=== PATIENT | female | born 1935 | race Caucasian/White ===

== ENCOUNTER 2022-04-29 17:32 | Emergency (ER) | payer SELFPAY ==
[2022-04-29 17:58] VITALS: BP 148/75; PULSE 66; RESP 18; TEMP 98; BMI 27.0
[2022-04-29] MEDS ORDERED: DIPHTH,PERTUSS(ACELL),TET 0.5 ML DISP.SYRIN IM ONE ×2 (19:32→19:34)
[2022-04-29] MEDS ORDERED: CEPHALEXIN MONOHYDRATE 500 MG CAPSULE (UD) PO ONE (19:50)
[2022-04-29] MEDS ORDERED: CEPHALEXIN MONOHYDRATE 500 MG CAPSULE (UD) ONE (19:57)
== END 2022-04-29 20:12 | disposition home or self-care (01) ==
LOC: JER 17:32 → JERFT 17:32
PROC: 3E0234Z Introduction of Serum, Toxoid and Vaccine into Muscle, Percutaneous Approach (ICD-10-PCS; principal; 2022-04-29)
DX: S62.620B Displaced fracture of middle phalanx of right index finger, initial encounter for open fracture (principal); W23.0XXA Caught, crushed, jammed, or pinched between moving objects, initial encounter
CPT/HCPCS: 73130-TC-RT-FY; 90715; 99284-25